=== PATIENT | male | born 1960 | race Caucasian/White ===

== ENCOUNTER 2017-09-13 18:10 | Inpatient (IN) | payer MEDICARE, MEDICAID ==
[2017-09-13] MEDS ORDERED: Sodium Chloride 0.9% 1,000 ML IV ONE (18:21)
--- NOTE | 2017-09-13 18:25 | ED Physician Chart ---
ED Chief Complaint/HPI - Patient Information Date Seen:: 09/13/17 Time Seen:: 17:40 Chief Complaint:: Abdominal Pain History of Present Illness:: onset x 2 days of intermittent, diffuse, crampy abdominal pain, N/V/D,; pt denies trauma, H/As, S/T, neck pain, C/P, SOB, A/C, fever, chills, bleeding, or urinary s/s Allergies:: Allergies Allergy/AdvReac Type Severity Reaction Status Date / Time diphenhydramine Allergy Verified 09/13/17 18:20 [From Benadryl] lorazepam Allergy Verified 09/13/17 18:20 morphine Allergy Verified 09/13/17 18:20 Penicillins Allergy Verified 09/13/17 18:21 Historian:: Patient, EMS Review:: Nurse's Note Reviewed, Old Chart Reviewed, EMS run form Reviewed ED Review of Systems - Review of Systems General/Constitutional: No fever, No chills, No weight loss, No weakness, No diaphoresis, No edema, No loss of appetite Skin: No skin lesions, No rash, No bruising Head: No headache, No light-headedness Eyes: No loss of vision, No pain, No diplopia ENT: No earache, No nasal drainage, No sore throat, No tinnitus Neck: No neck pain, No swelling, No thyromegaly, No stiffness, No mass noted Cardio Vascular: No chest pain, No palpitations, No PND, No orthopnea, No edema Pulmonary: No SOB, No cough, No sputum, No wheezing GI: Nausea, Vomiting, Diarrhea, Pain, Melena, Hematochezia, No constipation, No hematemesis G/U: No dysuria, No frequency, No hematuria, No nacturia Musculoskeletal: No bone or joint pain, No back pain, No muscle pain Endocrine: No polyuria, No polydipsia Psychiatric: No prior psych history, No depression, No anxiety, No suicidal ideation, No homicidal ideation, No auditory hallucination, No visual hallucination Hematopoietic: No bruising, No lymphadenopathy Allergic/Immuno: No urticaria, No angioedema Neurological: No syncope, No focal symptoms, No weakness, No paresthesia, No headache, No seizure, No dizziness, No confusion, No vertigo ED Past Medical History - Past Medical History Obtainable: Yes Past Medical History: HTN, Dyslipidemia, PUD/GERD, Other (Ulcerative Colitis) Family History: HTN Social History: Non Smoker, No Alcohol, No Drug Use, Single, Care Facility Surgical History: other (Multiple Abdominal Surgeries for UC) Psychiatricy History: None Medication: Reviewed ED Physical Exam - Physical Examination General/Constitutional: Awake, Well-developed, well-nourished, Alert, No distress, GCS 15, Non-toxic appearing, Ambulatory Head: Atraumatic Eyes: Lids, conjuctiva normal, PERRL, EOMI Skin: Nl inspection, No rash, No skin lesions, No ecchymosis, No lymphadenopathy Other Skin comments:: Poor Turgor with Dry MM ENMT: External ears, nose nl, TM canals nl, Nasal exam nl, Lips, teeth, gums nl , Oropharynx nl, Tonsils nl Neck: Nontender, Full ROM w/o pain, No JVD, No nuchal rigidity, No bruit, No mass, No stridor Respiratory: Nl effort/Exclusion, Clear to Auscultation, No Wheeze/Rhonchi/Rales Cardio Vascular: RRR, No murmur, gallop, rubs, NL S1 S2, Carotid/Femoral/Distal pulses equal bilaterally GI: No tenderness/rebounding/guarding, No organomegaly, No hernia, Normal BS's, Nondistended, No mass/bruits, No McBurney tenderness : No CVA tenderness Extremities: No tenderness or effusion, Full ROM, normal strength in all extremities, No edema, Normal digits & nails Neuro/Psych: Alert/oriented, DTR's symmetric, Normal sensory exam, Normal motor strength, Judgement/insight normal, Mood normal, Normal gait, No focal deficits Misc: Normal back, No paraspinal tenderness ED Labs/Radiology/EKG Results - Lab Results Comments:: K+: 3.2 - Radiology Results Comments:: NAD - EKG Interpretations EKG Time:: 18:40 Rate & Rhythm: 83; NSR Comments:: non-specific st-t changes ED Septic Shock - . Is Septic Shock (SBP<90, OR Lactate>4 mmol\L) present?: No ED Reassessment (Disposition) - Reassessment Reassessment Condition:: Improved - Diagnosis Diagnosis:: Abdominal Pain; Dehydration; Hypokalemia; N/V/D; AGE; Gastroenteritis - Aftercare/Follow up Instructions Aftercare/Follow-Up Instructions:: Counseled pt regarding lab results/diagnosis & need follow up, Counseled pt & family regarding lab results/diagnosis & need follow up - Patient Disposition Discharge/Transfer:: Acute Care w/in this hosp Accepting Physician:: Dr. De La Torre Time Called:: 1999 Time Responded:: 20:00 Admitted to:: Med/Surg Spoke to:: Dr. De La Torre Admitting Medical Physician:: Dr. De La Torre Condition at Disposition:: Stable, Improved
[2017-09-13 19:03] LABS: % BASOPHILS 0.9 % (0.0-2.0); % EOSINOPHILS 2.9 % (0.0-5.0); % LYMPHOCYTES 22.7 % (20.0-50.0); % MONOCYTES 7.9 % (2.0-10.0); % NEUTROPHILS 65.6 % (40.0-80.0); BASOPHILE ABSOLUTE 0.1 Th/cumm (0-0.2); EOSINOPHILE ABSOLUTE 0.2 Th/cmm (0.1-0.4); HEMATOCRIT 41.7 % (41.0-60); HEMOGLOBIN 13.5 gm/dL (12-16); LYMPHOCYTE ABSOLUTE 1.3 Th/cmm (1.5-3.0); MEAN CELL VOLUME 82.7 fl (80-99); MEAN CORPUSCULAR HEMOGLOBIN 26.9 pg (26.0-30.0); MEAN CORPUSCULAR HGB CONC 32.5 pg (28.0-36.0); MONOCYTE ABSOLUTE 0.4 Th/cmm (0.3-1.0); NEUTROPHILE ABSOLUTE 3.6 Th/cmm (1.8-8.0); PLATELET COUNT 354 Th/cmm (150-400); RED BLOOD COUNT 5.04 Mil/cmm (4.30-5.70); RED CELL DISTRIBUTION WIDTH 15.2 % (11.5-20.0); WHITE BLOOD COUNT 5.6 Th/cmm (4.8-10.8)
[2017-09-13 19:32] LABS: ALB/GLOB RATIO 1.1 (1.0-1.8); ALBUMIN 3.9 gm/dL (4.2-5.5); ALKALINE PHOSPHATASE 97 U/L (34-104); ANION GAP 11.3 (7.0-16.0); BILIRUBIN,TOTAL 0.2 mg/dL (0.3-1.0); BUN - UREA NITROGEN 7 mg/dL (7-25); CALCIUM SERUM 8.9 mg/dL (8.6-10.3); CARBON DIOXIDE 27.9 mEq/L (21.0-31.0); CHLORIDE 102 mEq/L (98-107); CHOLESTEROL 142 mg/dL (<200); CREATININE - SERUM 0.7 mg/dL (0.7-1.3); GFR AFRICAN-AMERICAN > 60.0 ml/min (>90); GFR NON AFRICAN-AMERICAN > 60.0 ml/min; GLUCOSE 84 mg/dL (70-105); HDL -HIGH DENSITY LIPOPROTEIN 33 mg/dL (23-92); POTASSIUM SERUM 3.2 mEq/L (3.5-5.1); SGOT 14 U/L (13-39); SGPT/ALT 10 U/L (7-52); SODIUM SERUM 138 mEq/L (136-145); TOTAL PROTEIN,SERUM 7.6 gm/dL (6.0-8.3); TRIGLYCERIDES 96 mg/dL (<150)
[2017-09-13 19:33] LABS: AMYLASE SERUM 35 U/L (29-103); LIPASE 13 U/L (11-82)
[2017-09-13 19:44] LABS: INR 1.1 (0.5-1.4); PROTHROMBIN TIME (TEST) 11.5 SECONDS (9.5-11.5)
[2017-09-13] MEDS ORDERED: Potassium Chloride 20 mEq ER Tab PO ONE ×2 (21:00→22:17)
[2017-09-13] MEDS ORDERED: Morphine Sulfate 2 mg/mL 1mL Syr IVP PRN (21:05)
[2017-09-13] MEDS ORDERED: Potassium Chloride 10 MEQ in D5-0.9%NS 1,000 ML IV SCH (21:06)
[2017-09-13] MEDS ORDERED: NITROGLYCERIN OINT 2% 1 INCH PACKET TP STA (21:55)
[2017-09-13] MEDS ORDERED: NITROGLYCERIN OINT 2% 1 INCH PACKET TP ONE (22:13)
[2017-09-14 01:42] VITALS: BP 140/61
[2017-09-14] MEDS: D5-0.45NS w/10 mEq KCL 1,000 ML IV SCH (02:53)
[2017-09-14] MEDS: HYDROmorphone 2 mg/mL 1mL Vial IVP PRN ×2 (04:01→08:22)
--- NOTE | 2017-09-14 08:11 | Diagnostic Imaging Report ---
CHEST X-RAY: AP view INDICATION: pain COMPARISON: None FINDINGS: Patient is mildly rotated. Chronic lung changes are seen with increased right basal lung markings. Slight increased left mid lung markings are also noted. No focal consolidation or effusions. 3 mm nodular density of the left upper lobe is noted adjacent to the anterior left second rib. Heart size is borderline prominent. Mildly tortuous aorta is noted. Multiple old left rib fractures are noted. Diffuse gas distended loops of bowel of the upper abdomen are noted. Degenerative changes of the spine are noted. No evidence of pneumothorax. IMPRESSION: Chronic lung changes. Increased right basal lung markings are noted which may be chronic versus less likely faint infiltrate, please correlate clinically. Left midlung subsegmental atelectasis versus scarring. 3 mm calcified appearing nodular density of left upper lobe, probably an old calcified granuloma. Please clinical correlation will exams. Consider follow-up if warranted. Generalized gaseous distended loops of bowel, partially visualized. Findings may represent an ileus. If indicated, acute abdominal series may be obtained for further assessment.
[2017-09-14 10:33] LABS: URINE MICROSCOPIC INDICATED? YES; URINE SOURCE CLEAN C
[2017-09-14 10:37] LABS: URINE BILIRUBIN NEGATIVE (NEGATIVE); URINE BLOOD NEGATIVE (NEGATIVE); URINE GLUCOSE (UA) NEGATIVE (NEGATIVE); URINE KETONE NEGATIVE (NEGATIVE); URINE LEUKOCYTE ESTERASE NEGATIVE (NEGATIVE); URINE NITRATE NEGATIVE (NEGATIVE); URINE PROTEIN NEGATIVE (NEGATIVE); URINE UROBILINOGEN 0.2 E.U./dL (0.2 - 1.0)
[2017-09-14 10:50] LABS: URINE CLARITY CLEAR (CLEAR); URINE COLOR YELLOW
[2017-09-14 10:56] LABS: URINE EPITHELIAL CELLS OCCASIONAL /lpf (FEW); URINE RBC NONE SEEN /hpf (0-5); URINE WBC 0-2 /hpf (0-5)
[2017-09-14 10:57] LABS: URINE BACTERIA FEW /hpf (NONE SEEN)
[2017-09-14 11:13] LABS: ANION GAP 8.8 (7.0-16.0); BUN - UREA NITROGEN 6 mg/dL (7-25); CALCIUM SERUM 9.3 mg/dL (8.6-10.3); CARBON DIOXIDE 28.2 mEq/L (21.0-31.0); CHLORIDE 102 mEq/L (98-107); CREATININE - SERUM 0.6 mg/dL (0.7-1.3); GFR AFRICAN-AMERICAN > 60.0 ml/min (>90); GFR NON AFRICAN-AMERICAN > 60.0 ml/min; GLUCOSE 113 mg/dL (70-105); SODIUM SERUM 135 mEq/L (136-145)
[2017-09-14] MEDS: HYDROmorphone 2 mg/mL 1mL Vial IM PRN ×3 (13:11→21:10)
[2017-09-14] MEDS: metroNIDAZOLE 500mg/NS 100mL 500 MG/100 ML BAG IV SCH ×2 (14:26→21:40)
--- NOTE | 2017-09-14 17:04 | History & Physical ---
ADMIT DATE: 09/14/2017 CHIEF COMPLAINT: Short of breath, abdominal pain, nausea, vomiting, diarrhea. HISTORY OF PRESENT ILLNESS: The patient is a 56-year-old male admitted from the Emergency Room to the telemetry floor of [facility] due to multiple complicated medical conditions. The patient was complaining of some shortness of breath with nausea, vomiting, abdominal pain, severe enough to the point that the patient his come into the hospital. The patient does have a history of COPD and pneumonia. He is also status post multiple CVAs with difficulty walking. Additionally, the patient has chronic pain syndrome, which is understandable as the patient has had multiple abdominal surgeries with complications of adhesions. The patient had early onset ulcerative colitis and Crohn's disease. He has had multiple abdominal surgeries done decades ago in [facility] with subsequent adhesion complications and the resultant chronic pain syndrome. Because of the nausea and vomiting, the patient's potassium was low at 3.3 in the Emergency Room. His troponin is less than 0.01. PAST MEDICAL HISTORY: COPD, pneumonia, questionable coronary heart disease, congestive heart failure, status post CVA, Crohn's disease, and ulcerative colitis. PAST SURGICAL HISTORY: Status post multiple abdominal surgeries. MEDICATIONS: See medication reconciliation. ALLERGIES: Multiple, but I doubt this is very reliable, as the patient did receive a lot of medications above without allergies. FAMILY HISTORY: Noncontributory. SOCIAL HISTORY: The patient is not and without any children. The patient has one sister with loose contact. He smoked before, quit years ago. No history of alcohol or IV drug use. REVIEW OF SYSTEMS: As per HPI. PHYSICAL EXAMINATION: GENERAL: Well-developed, thin male in no acute distress. SKIN: Warm and dry. VITAL SIGNS: Basically stable. HEENT: Normocephalic, atraumatic. Pupils equal, round, react to light and accommodation. CHEST: Symmetrical lung smith with ____ at lung base. HEART: Normal sinus rhythm, S1, S2. ABDOMEN: Benign, no peritoneal signs, but there is generalized tenderness. Bowel sounds are positive. EXTREMITIES: No clubbing, cyanosis. There is trace edema, bilaterally. PSYCHIATRIC: Linear and logical. NEUROLOGICAL: Unremarkable. LABORATORY DATA: Reviewed, seen from computer. ASSESSMENT AND PLAN: 1. He has probably early aspiration pneumonia: Flagyl IVPB q. 8h. ordered and sputum Gram stain and C and S, ordered, which will be adjusted accordingly. 2. Abdominal pain with nausea, vomiting, diarrhea: The patient is status post multiple abdominal surgeries with complication of adhesions and chronic pain syndrome as a result. The patient also had an extensive workup in different hospitals and therefore currently we will manage conservatively, which is also the patient's wish. 3. Hypokalemia: Supplement as needed. 4. Gastroenteritis: Keep patient n.p.o. on IV fluids. 5. Chronic obstructive pulmonary disease: RT protocol. 6. Chronic pain syndrome: It is understandable. 7. Status post cerebrovascular accident with difficulty walking: Physical therapy. 8. DVT prophylaxis. JOB# [id number]
[2017-09-14] MEDS ORDERED: AMITRIPTYLINE HCL 150 MG PO SCH (21:00)
[2017-09-15] MEDS: HYDROmorphone 2 mg/mL 1mL Vial IVP PRN ×6 (02:04→21:51)
[2017-09-15] MEDS: metroNIDAZOLE 500mg/NS 100mL 500 MG/100 ML BAG IV SCH ×3 (04:08→20:41)
[2017-09-15 06:07] LABS: % BASOPHILS 1.9 % (0.0-2.0); % EOSINOPHILS 2.1 % (0.0-5.0); % LYMPHOCYTES 35.7 % (20.0-50.0); % MONOCYTES 10.1 % (2.0-10.0); % NEUTROPHILS 50.2 % (40.0-80.0); BASOPHILE ABSOLUTE 0.1 Th/cumm (0-0.2); EOSINOPHILE ABSOLUTE 0.1 Th/cmm (0.1-0.4); HEMOGLOBIN 13.5 gm/dL (12-16); LYMPHOCYTE ABSOLUTE 1.6 Th/cmm (1.5-3.0); MEAN CELL VOLUME 82.3 fl (80-99); MEAN CORPUSCULAR HEMOGLOBIN 27.1 pg (26.0-30.0); MEAN PLATELET VOLUME 7.1 fl; MONOCYTE ABSOLUTE 0.5 Th/cmm (0.3-1.0); NEUTROPHILE ABSOLUTE 2.3 Th/cmm (1.8-8.0); PLATELET COUNT 307 Th/cmm (150-400); RED BLOOD COUNT 4.98 Mil/cmm (4.30-5.70); RED CELL DISTRIBUTION WIDTH 15.3 % (11.5-20.0); WHITE BLOOD COUNT 4.6 Th/cmm (4.8-10.8)
[2017-09-15] MEDS: D5-0.45NS w/10 mEq KCL 1,000 ML IV SCH (12:56)
--- NOTE | 2017-09-15 20:20 | Progress Notes ---
DATE: 09/14/2017 SUBJECTIVE: The patient is complaining of abdominal pain, very weak. OBJECTIVE: VITAL SIGNS: Basically stable. HEENT: Normocephalic, atraumatic. Pupils equal, round, react to light and accommodation. CHEST: Symmetrical. LUNGS: ____ at lung base. CARDIAC: Normal sinus rhythm. S1, S2. ABDOMEN: Benign, soft, nontender. EXTREMITIES: No clubbing, cyanosis. There is trace edema, bilaterally. PSYCHIATRIC: Linear and logical. NEUROLOGICAL: Unremarkable. LABS: Reviewed. ASSESSMENT AND PLAN: 1. Chronic pain syndrome: Multifactorial, understandable. We will adjust pain medications as needed. 2. Abdominal pain on and off, but improving. 3. Early pneumonia: Flagyl IVPB and adjust antibiotic accordingly. 4. Hypokalemia: Supplement. We will repeat BMP in the morning. 5. Chronic obstructive pulmonary disease: RT protocol. 6. Gastroenteritis: The patient will be kept n.p.o. We will start clear liquid diet if patient can tolerate. 7. Severe Crohn disease and ulcerative colitis, status post multiple abdominal surgeries with complication. 8. Status post cerebrovascular accident with difficulty walking: Physical therapy. 9. Deep venous thrombosis prophylaxis. JOB# [id number]
[2017-09-16] MEDS: HYDROmorphone 2 mg/mL 1mL Vial IVP PRN ×6 (02:10→22:04)
[2017-09-16] MEDS: metroNIDAZOLE 500mg/NS 100mL 500 MG/100 ML BAG IV SCH ×3 (06:03→20:55)
[2017-09-16] MEDS ORDERED: fentaNYL 50 mcg/hr Tdm Patch TD SCH (09:00)
[2017-09-16] MEDS: D5-0.45NS w/10 mEq KCL 1,000 ML IV SCH (13:58)
[2017-09-17] MEDS: HYDROmorphone 2 mg/mL 1mL Vial IVP PRN ×6 (02:00→22:07)
[2017-09-17 05:16] LABS: % BASOPHILS 1.3 % (0.0-2.0); % EOSINOPHILS 4.7 % (0.0-5.0); % LYMPHOCYTES 26.4 % (20.0-50.0); % MONOCYTES 9.3 % (2.0-10.0); % NEUTROPHILS 58.3 % (40.0-80.0); BASOPHILE ABSOLUTE 0.1 Th/cumm (0-0.2); EOSINOPHILE ABSOLUTE 0.2 Th/cmm (0.1-0.4); HEMATOCRIT 40.9 % (41.0-60); HEMOGLOBIN 13.4 gm/dL (12-16); LYMPHOCYTE ABSOLUTE 1.4 Th/cmm (1.5-3.0); MEAN CELL VOLUME 82.2 fl (80-99); MEAN CORPUSCULAR HEMOGLOBIN 26.9 pg (26.0-30.0); MEAN CORPUSCULAR HGB CONC 32.7 pg (28.0-36.0); MEAN PLATELET VOLUME 7.2 fl; MONOCYTE ABSOLUTE 0.5 Th/cmm (0.3-1.0); NEUTROPHILE ABSOLUTE 3.1 Th/cmm (1.8-8.0); PLATELET COUNT 324 Th/cmm (150-400); RED BLOOD COUNT 4.98 Mil/cmm (4.30-5.70); RED CELL DISTRIBUTION WIDTH 15.4 % (11.5-20.0); WHITE BLOOD COUNT 5.3 Th/cmm (4.8-10.8)
[2017-09-17] MEDS: metroNIDAZOLE 500mg/NS 100mL 500 MG/100 ML BAG IV SCH ×3 (05:24→20:53)
[2017-09-17 05:26] LABS: ALB/GLOB RATIO 1.1 (1.0-1.8); ALBUMIN 3.5 gm/dL (4.2-5.5); ALKALINE PHOSPHATASE 101 U/L (34-104); BILIRUBIN,TOTAL 0.4 mg/dL (0.3-1.0); BUN - UREA NITROGEN 8 mg/dL (7-25); CARBON DIOXIDE 25.5 mEq/L (21.0-31.0); CHLORIDE 104 mEq/L (98-107); CREATININE - SERUM 0.8 mg/dL (0.7-1.3); GFR AFRICAN-AMERICAN > 60.0 ml/min (>90); GFR NON AFRICAN-AMERICAN > 60.0 ml/min; GLUCOSE 85 mg/dL (70-105); POTASSIUM SERUM 3.5 mEq/L (3.5-5.1); SGOT 14 U/L (13-39); SGPT/ALT 9 U/L (7-52); SODIUM SERUM 136 mEq/L (136-145); TOTAL PROTEIN,SERUM 6.7 gm/dL (6.0-8.3)
[2017-09-17] MEDS: D5-0.45NS w/10 mEq KCL 1,000 ML IV SCH (11:56)
[2017-09-18] MEDS: HYDROmorphone 2 mg/mL 1mL Vial IVP PRN ×5 (02:05→18:11)
[2017-09-18] MEDS: metroNIDAZOLE 500mg/NS 100mL 500 MG/100 ML BAG IV SCH ×2 (05:59→14:10)
[2017-09-18] MEDS: D5-0.45NS w/10 mEq KCL 1,000 ML IV SCH (10:08)
--- NOTE | 2017-09-20 14:52 | Discharge Summary ---
DATE OF DISCHARGE: 09/18/2017 FINAL DIAGNOSES: 1. Abdominal pain, improved. 2. Nausea and vomiting, resolved. 3. Early pneumonia on IVPB antibiotics. 4. Hypokalemia, supplemented. 5. Chronic obstructive pulmonary disease, improved. 6. ____ chronic pain syndrome on medication with dose adjustment. HOSPITAL COURSE: The patient is a 56-year-old male admitted from the Emergency Room to telemetry floor of [facility] due to early pneumonia with abdominal pain, nausea, vomiting, diarrhea in [place] [facility] [place]. Due to nausea and vomiting, the patient's potassium was low, which was supplemented in the Emergency Room. The patient's prognosis suffered from gastroenteritis. On admission, the patient did have severe Crohn disease and ulcerative colitis and underwent multiple abdominal surgeries in [facility] and over decades ago with complications and obstruction resulting in a chronic pain syndrome. The patient was kept n.p.o. initially on admission and on clear liquid diet was started the next day as the patient's abdominal pain, nausea and vomiting improved. The patient tolerated the diet okay. Due to pneumonia and ____ COPD, etc, the patient did well and wanted to be transferred to [facility]. He was accepted to [facility]. DISCHARGE CONDITION: Stable. DISPOSITION: [facility]. DISHCARGE MEDICATIONS: Continue medication from [facility]. DIET: Cardiac soft diet. ACTIVITY: Bed rest with physical therapy. FOLLOWUP: Same day in [place]. JOB# [id number]
== END 2017-09-18 19:15 | DRG 178 ==
LOC: ER 18:10 → TELE 21:15
PROVIDERS: ADMIT Internal Medicine; ATTEND Internal Medicine
DX: J69.0 Pneumonitis due to inhalation of food and vomit (principal); J44.0 Chronic obstructive pulmonary disease with (acute) lower respiratory infection; K50.90 Crohn's disease, unspecified, without complications; K52.9 Noninfective gastroenteritis and colitis, unspecified; E87.6 Hypokalemia; I11.0 Hypertensive heart disease with heart failure; I50.9 Heart failure, unspecified; J44.9 Chronic obstructive pulmonary disease, unspecified; K21.9 Gastro-esophageal reflux disease without esophagitis; E86.0 Dehydration; G89.4 Chronic pain syndrome; Z86.73 Personal history of transient ischemic attack (TIA), and cerebral infarction without residual deficits; Z88.0 Allergy status to penicillin; Z88.8 Allergy status to other drugs, medicaments and biological substances; Z82.49 Family history of ischemic heart disease and other diseases of the circulatory system
CPT/HCPCS: 36415-UA; 71045-TC; 80048-TC; 80053-TC; 80061-TC; 81001-TC; 82150-TC; 82550-TC; 82948-90; 83690-TC; 83880-TC; 84484-TC; 85025-TC; 85610-TC; 90799; 93005; J1170; J3480; J7030; J7042; Z7610

== ENCOUNTER 2017-12-23 23:43 | Inpatient (IN) | payer MEDICARE, MEDICAID ==
--- NOTE | 2017-12-24 00:36 | ED Physician Chart ---
ED Chief Complaint/HPI - Patient Information Date Seen:: 12/23/17 Time Seen:: 23:59 Chief Complaint:: dizziness History of Present Illness:: THIS IS A 57 YO CHRONICALLY ILL WHITE MALE SENT TO THIS ER FOR AN EVALUATION FROM THE [facility]. HE COMPLAINS OF NOT BEING ABLE TO GET UP TO WALK BECAUSE OF DIZZINESS, WEAKNESS AND ABDOMINAL DISTENTION. HE HAS AN EXTENSIVE MEDICAL HISTORY OF COPD, HEART DISEASE, MULTIPLE CVA, CROHN'S DISEASE, AND ULCERATIVE COLITIS. HE DENIES VOMITING. HE NOW COMPLAINS ALSO OF RIGHT KNEE AND FOOT PAIN AFTER A FALL TODAY. HE STATES THAT HIS ABDOMEN HAS BEEN DISTENDED WITH PAIN FOR A WEEK. HE STATES THAT PAIN IS 6/10 AND DIFFUSE NON RADIATING. Allergies:: Allergies Allergy/AdvReac Type Severity Reaction Status Date / Time diphenhydramine Allergy Verified 12/23/17 23:55 [From Benadryl] lorazepam Allergy Verified 12/23/17 23:55 morphine Allergy Verified 12/23/17 23:55 Penicillins Allergy Verified 12/23/17 23:55 Vitals:: Vital Signs - 8 hr 12/23/17 23:45 Temp 98.2 F HR 86 RR 18 BP 86/63 O2 Sat % 94 Historian:: Patient, EMS, Medical Records Review:: Nurse's Note Reviewed, Transfer documents Reviewed ED Review of Systems - Review of Systems General/Constitutional: No fever, No chills, Weight loss, Weakness, No diaphoresis, No edema, No loss of appetite Skin: No skin lesions, No rash, No bruising Head: No headache, Light headed Eyes: No loss of vision, No pain, No diplopia ENT: No earache, No nasal drainage, No sore throat, No tinnitus Neck: No neck pain, No swelling, No thyromegaly, No stiffness, No mass noted Cardio Vascular: No chest pain, No palpitations, No PND, No orthopnea, No edema Pulmonary: No SOB, No cough, No sputum, No wheezing GI: No nausea, No vomiting, No diarrhea, Pain, No melena, No hematochezia, No constipation, No hematemesis G/U: No dysuria, No frequency, No hematuria Musculoskeletal: Bone or joint pain (RIGHT KNEE PAIN), No back pain, No muscle pain Endocrine: No polyuria, No polydipsia Psychiatric: No prior psych history, No depression, No anxiety, No suicidal ideation Hematopoietic: No bruising, No lymphadenopathy Allergic/Immuno: No urticaria, No angioedema Neurological: No syncope, No focal symptoms, No weakness, No paresthesia, No headache, No seizure, No dizziness, No confusion, No vertigo ED Past Medical History - Past Medical History Obtainable: Yes Past Medical History: HTN, CAD, CHF, Asthma/COPD, CVA/TIA, PUD/GERD, Seizures, Dementia Family History: None Social History: Smoker, No Alcohol, No Drug Use, , Care Facility Surgical History: other (MULTIPLE COLON SURGERIES, ) Psychiatricy History: Depression, Schizophrenia Medication: Reviewed Family Medical History - Family Member Mother History Unknown: Yes ED Physical Exam - Physical Examination General/Constitutional: Awake, Well-developed, well-nourished, Alert, No distress, GCS 15, Non-toxic appearing, Ambulatory Head: Atraumatic Eyes: Lids, conjuctiva normal, PERRL, EOMI Skin: Nl inspection, No rash, No skin lesions, No ecchymosis, Well hydrated, No lymphadenopathy ENMT: External ears, nose nl, Nasal exam nl, Lips, teeth, gums nl Neck: Nontender, Full ROM w/o pain, No JVD, No nuchal rigidity, No bruit, No mass, No stridor Respiratory: Nl effort/Exclusion, Clear to Auscultation, No Wheeze/Rhonchi/Rales Cardio Vascular: RRR, No murmur, gallop, rubs, NL S1 S2 GI: No tenderness/rebounding/guarding (THERE IS GENERALIZE TENDERNESS AND SLIGHTLY DISTENDED ABDOMEN), No organomegaly, No hernia, Normal BS's, Nondistended, No mass/bruits, No McBurney tenderness : No CVA tenderness Extremities: No tenderness or effusion, Full ROM, normal strength in all extremities, No edema, Normal digits & nails Neuro/Psych: Alert/oriented, DTR's symmetric, Normal sensory exam, Normal motor strength, Judgement/insight normal, Mood normal, Normal gait, No focal deficits Misc: Normal back, No paraspinal tenderness ED Assessment - Assessment General Assessment: abdominal pain ED Septic Shock - . Is Septic Shock (SBP<90, OR Lactate>4 mmol\L) present?: No - <6hrs of presentation: Vital Signs: Vital Signs - 8 hr 08/11/18 23:45 Temp 98.2 F HR 86 RR 18 BP 86/63 O2 Sat % 94 ED Reassessment (Disposition) - Reassessment Reassessment Condition:: Improved - Diagnosis Diagnosis:: abdominal pain - Patient Disposition Accepting Physician:: this patient will be cared for by dr. CAMERON Priest 0700 HRS.
[2017-12-24] MEDS ORDERED: Sodium Chloride 0.9% 1,000 ML IV ONE (01:44)
[2017-12-24] MEDS ORDERED: Haloperidol Lactate 5 mg/mL 1mL Vial IVP ONE (03:20)
[2017-12-24] MEDS ORDERED: Haloperidol Lactate 5 mg/mL 1mL Vial IM ONE (03:20)
[2017-12-24] MEDS ORDERED: Haloperidol Lactate 5 mg/mL 1mL Vial ONE (06:19)
[2017-12-24 08:10] LABS: HEMATOCRIT 45.5 % (41.0-60); HEMOGLOBIN 14.7 gm/dL (12-16); MEAN CELL VOLUME 85.4 fl (80-99); MEAN CORPUSCULAR HEMOGLOBIN 27.6 pg (26.0-30.0); MEAN CORPUSCULAR HGB CONC 32.3 pg (28.0-36.0); MEAN PLATELET VOLUME 8.8 fl; PLATELET COUNT 333 Th/cmm (150-400); RED BLOOD COUNT 5.34 Mil/cmm (4.30-5.70); WHITE BLOOD COUNT 9.4 Th/cmm (4.8-10.8)
[2017-12-24 08:11] LABS: BAND NEUTROPHILE 0 % (0-10); BASOPHIL 0 % (0-3); EOSINOPHIL 1 % (0-5); LYMPHOCYTE 11 % (20-50); MONOCYTE 9 % (2-10); NEUTROPHILS 79 % (40-80); PLATELET ESTIMATE ADEQUATE (NORMAL)
[2017-12-24 08:15] LABS: INR 1.07 (0.5-1.4); PROTHROMBIN TIME (TEST) 10.9 SECONDS (9.5-11.5)
[2017-12-24 08:16] LABS: ANION GAP 18.7 (7.0-16.0); CHLORIDE 101 mEq/L (98-107); GLUCOSE 108 mg/dL (70-105); POTASSIUM SERUM 3.7 mEq/L (3.5-5.1); SODIUM SERUM 135 mEq/L (136-145)
[2017-12-24 08:17] LABS: ALB/GLOB RATIO 0.7 (1.0-1.8); ALBUMIN 3.4 gm/dL (4.2-5.5); ALKALINE PHOSPHATASE 121 U/L (34-104); BILIRUBIN,TOTAL 0.2 mg/dL (0.3-1.0); BUN - UREA NITROGEN 21 mg/dL (7-25); CALCIUM SERUM 8.7 mg/dL (8.6-10.3); CREATININE - SERUM 1.1 mg/dL (0.7-1.3); GFR AFRICAN-AMERICAN > 60.0 ml/min (>90); GFR NON AFRICAN-AMERICAN > 60.0 ml/min; SGOT 17 U/L (13-39); SGPT/ALT 14 U/L (7-52); TOTAL PROTEIN,SERUM 8.5 gm/dL (6.0-8.3)
[2017-12-24] MEDS ORDERED: Magnesium Hydroxide (MOM) 30 mL UDC PO PRN (09:34)
[2017-12-24] MEDS ORDERED: LIDOCAINE TP PRN (09:34)
[2017-12-24] MEDS ORDERED: BUPRENORPHINE 5 MCG TD SCH (09:45)
--- NOTE | 2017-12-24 09:45 | Diagnostic Imaging Report ---
Exam: CT examination abdomen pelvis HISTORY: Renal stones. Total DLP equals 410 CTDI equals 8.5 Findings: Multiple contiguous thin section of the abdomen pelvis obtained from lower thorax to pubic symphysis without the administration of oral or intravenous contrast material, no prior studies available comparison. The study demonstrates a normal aeration of lung parenchyma at the bases. The liver and spleen are intact. The pancreas is normal. The gallbladder is distended. The kidneys demonstrate no evidence of obstructive uropathy or nephrolithiasis. Multiple cysts are noted throughout the left kidney largest one measuring 4.5 cm diameter. There is evidence for moderate to distention of the colon with air-fluid levels might be suggestive of enteritis or adynamic ileus. There is evidence of fecal impaction in the rectosigmoid junction the rectum. Bony structures demonstrate no evidence for lytic or blastic changes. The urinary bladder is distended. There is evidence for subcutaneous sebaceous cyst in the left gluteal region measuring 4.5 cm diameter. IMPRESSION: Distention, air-fluid levels throughout the colon suggestive of ileus with enterocolitis. Correlate with patient's symptoms
[2017-12-24] MEDS ORDERED: oxyCODONE 5 mg IR Tab PO PRN (10:03)
[2017-12-24] MEDS: HYDROmorphone 2 mg/mL 1mL Vial IVP PRN ×4 (11:12→22:42)
[2017-12-24] MEDS: D5-0.9%NS 1,000 ML IV SCH ×2 (11:19→22:49)
[2017-12-24] MEDS ORDERED: OXYCODONE HCL 20 MG PO SCH (12:00)
[2017-12-24] MEDS: Dicyclomine 10 mg Cap PO SCH ×3 (13:17→21:27)
[2017-12-24] MEDS ORDERED: MESALAMINE 800 MG PO SCH (14:00)
[2017-12-24] MEDS ORDERED: DRONABINOL 2.5 MG PO SCH (17:00)
[2017-12-24] MEDS ORDERED: Non-Formulary Item 1 EA (Lactobacillus Acidophilus [Acidophilus] 1 EACH) PO SCH (17:00)
[2017-12-24] MEDS: Fluticasone Propionate Nasal 1 SPR SPR NS SCH (18:28)
--- NOTE | 2017-12-25 00:49 | History & Physical ---
ADMIT DATE: 12/24/2017 CHIEF COMPLAINT: Abdominal pain and shortness of breath. HISTORY OF PRESENT ILLNESS: The patient is a 57-year-old male admitted from the Emergency Room to telemetry floor of [facility] due to multiple complicated medical conditions. The patient complained worsening abdominal pain over the past few days to the point that he felt he really needs to come to the Emergency Room. In the Emergency Room, abdominal and pelvic CT scan revealed finding suggesting ileus. Of mention is the patient has a severe Crohn's disease and ulcerative colitis since he was a teenager. The patient had multiple abdominal surgeries done in [facility] at that time. There were a lot of complications and adhesions and after surgery, which left the patient with chronic abdominal pain and subsequent chronic pain syndrome. Additionally, the patient also complained of short of breath from time to time. He does have COPD and the probably has COPD exacerbation. Additionally, his abdominal CT scan also revealed distention of colon with air fluid level, might be suggestive of enteritis. PAST MEDICAL HISTORY: Severe Crohn's disease and ulcerative colitis, COPD, pneumonia, questionable coronary artery disease, status post CVA with difficulty walking, chronic pain syndrome due to multiple abdominal surgeries with adhesion complications. PAST SURGICAL HISTORY: Multiple abdominal surgeries, once as a teenager, ____ in his early 20s for severe Crohn's disease and ulcerative colitis. MEDICATIONS: See medication reconciliation list. ALLERGIES: Please see allergy profile as the is unreliable as the patient did receive many of those medication without any allergy or reaction. REVIEW OF SYSTEMS: As per HPI. PHYSICAL EXAMINATION: GENERAL: A well-developed, thin male, in no acute distress. SKIN: Warm and dry. VITAL SIGNS: Basically stable. HEENT: Normocephalic, atraumatic. Pupils equal, round, react to light and accommodation. CHEST: Symmetrical. LUNGS: Few wheezing appreciated. CARDIAC: Normal sinus rhythm. S1 and S2. ABDOMEN: Benign, soft, nontender. EXTREMITIES: No clubbing, cyanosis. There is trace edema bilaterally, 2+ pitting. NEUROLOGICAL: Unremarkable. LABORATORY DATA: Reviewed. ASSESSMENT AND PLAN: 1. Abdominal pain: Multifactorial probably due to the combination of enteritis or possible Crohn's disease or ulcerative colitis. There is also some component of ileus. 2. History of severe ulcerative colitis and Crohn disease status post multiple surgeries with complication of adhesions and the resultant abdominal pain and chronic pain syndrome. 3. Short of breath/respiratory insufficiency due to chronic obstructive pulmonary disease exacerbation: RT protocol ordered. We will observe closely. 4. Status post cerebrovascular accident with difficulty walking. 5. Questionable history of coronary artery disease. 6. Seizure, controlled. 7. History of depression, anxiety/bipolar and mild psychosis: Continue medication. We will adjust accordingly. 8. Deep venous thrombosis prophylaxis. [facility]# [id number]
[2017-12-25] MEDS: HYDROmorphone 2 mg/mL 1mL Vial IVP PRN ×7 (01:42→21:55)
[2017-12-25] MEDS ORDERED: Non-Formulary Item 1 EA (Duloxetine Hcl [Cymbalta] 60 MG) PO SCH (09:00)
[2017-12-25] MEDS ORDERED: NALOXEGOL OXALATE 25 MG PO SCH (09:00)
[2017-12-25] MEDS: Lactobacillus Rhamnosus GG 15 Billion CFU CAP.SPRINK PO SCH (09:03)
[2017-12-25] MEDS: Multivitamin Tab PO SCH (09:03)
[2017-12-25] MEDS: Fluticasone Propionate Nasal 1 SPR SPR NS SCH ×2 (09:03→17:21)
[2017-12-25] MEDS: Dicyclomine 10 mg Cap PO SCH ×4 (09:03→20:40)
[2017-12-25] MEDS: D5-0.9%NS 1,000 ML IV SCH (09:31)
[2017-12-25 12:37] LABS: URINE SOURCE MIDSTREAM
[2017-12-25 12:39] LABS: URINE BILIRUBIN NEGATIVE (NEGATIVE); URINE BLOOD NEGATIVE (NEGATIVE); URINE GLUCOSE (UA) NEGATIVE (NEGATIVE); URINE KETONE NEGATIVE (NEGATIVE); URINE LEUKOCYTE ESTERASE NEGATIVE (NEGATIVE); URINE NITRATE NEGATIVE (NEGATIVE); URINE PROTEIN NEGATIVE (NEGATIVE); URINE UROBILINOGEN 0.2 E.U./dL (0.2 - 1.0)
[2017-12-25 12:42] LABS: URINE COLOR YELLOW
[2017-12-25 12:43] LABS: URINE CLARITY CLEAR (CLEAR); URINE MICROSCOPIC INDICATED? NO
--- NOTE | 2017-12-25 12:59 | Diagnostic Imaging Report ---
Right foot (3 views) HISTORY: Pain No acute bony abnormality seen. Mild valgus deformity noted about the first metatarsal phalangeal joint. IMPRESSION: 1. No definite acute abnormalities 2. Mild valgus deformity about the first metatarsal phalangeal joint. In the presence of recent trauma and persistent symptoms, a repeat radiograph in 5-7 days may be helpful for detection of a subtle or occult fracture.
--- NOTE | 2017-12-25 23:35 | Internal Medicine Prog Note ---
Internal Medicine Subjective - Subjective Service Date: 12/25/17 Patient seen and examined:: without staff Patient is:: awake, interactive, in bed Patient Complaints of:: congestion Per staff patient has:: no adverse event Internal Medicine Objective - Results Result Diagrams: 12/24/17 01:15 12/24/17 01:15 Recent Labs: Laboratory Last Values WBC 9.4 Th/cmm (4.8-10.8) 12/24/17 01:15 RBC 5.34 Mil/cmm (4.30-5.70) 12/24/17 01:15 Hgb 14.7 gm/dL (12-16) 12/24/17 01:15 Hct 45.5 % (41.0-60) 12/24/17 01:15 MCV 85.4 fl (80-99) 12/24/17 01:15 MCH 27.6 pg (26.0-30.0) 12/24/17 01:15 MCHC Differential 32.3 pg (28.0-36.0) 12/24/17 01:15 RDW 16.0 % (11.5-20.0) 12/24/17 01:15 Plt Count 333 Th/cmm (150-400) 12/24/17 01:15 MPV 8.8 fl 12/24/17 01:15 Add Manual Diff YES 12/24/17 01:15 Band Neutrophils % 0 % (0-10) 12/24/17 01:15 Neutrophils (Manual) 79 % (40-80) 12/24/17 01:15 Lymphocytes 11 % (20-50) L 12/24/17 01:15 Monocytes 9 % (2-10) 12/24/17 01:15 Eosinophils 1 % (0-5) 12/24/17 01:15 Basophils 0 % (0-3) 12/24/17 01:15 Platelet Estimate ADEQUATE (NORMAL) 12/24/17 01:15 PT 10.9 SECONDS (9.5-11.5) 12/24/17 01:15 INR 1.07 (0.5-1.4) 12/24/17 01:15 PTT (Actin FS) 31.0 SECONDS (26.0-38.0) 12/24/17 01:15 Sodium 135 mEq/L (136-145) L 12/24/17 01:15 Potassium 3.7 mEq/L (3.5-5.1) 12/24/17 01:15 Chloride 101 mEq/L (98-107) 12/24/17 01:15 Carbon Dioxide 19.0 mEq/L (21.0-31.0) L 12/24/17 01:15 Anion Gap 18.7 (7.0-16.0) H 12/24/17 01:15 BUN 21 mg/dL (7-25) 12/24/17 01:15 Creatinine 1.1 mg/dL (0.7-1.3) 12/24/17 01:15 Est GFR ( Amer) > 60.0 ml/min (>90) 12/24/17 01:15 Est GFR (Non-Af Amer) > 60.0 ml/min 12/24/17 01:15 BUN/Creatinine Ratio 19.1 12/24/17 01:15 Glucose 108 mg/dL (70-105) H 12/24/17 01:15 Calcium 8.7 mg/dL (8.6-10.3) 12/24/17 01:15 Total Bilirubin 0.2 mg/dL (0.3-1.0) L 12/24/17 01:15 AST 17 U/L (13-39) 12/24/17 01:15 ALT 14 U/L (7-52) 12/24/17 01:15 Alkaline Phosphatase 121 U/L (34-104) H 12/24/17 01:15 Troponin I < 0.01 ng/mL (0.01-0.05) L 12/24/17 01:15 Total Protein 8.5 gm/dL (6.0-8.3) H 12/24/17 01:15 Albumin 3.4 gm/dL (4.2-5.5) L 12/24/17 01:15 Globulin 5.1 gm/dL 12/24/17 01:15 Albumin/Globulin Ratio 0.7 (1.0-1.8) L 12/24/17 01:15 Amylase 49 U/L (29-103) 12/24/17 01:15 Lipase 81 U/L (11-82) 12/24/17 01:15 TSH 0.51 uIU/ml (0.34-5.60) 12/24/17 01:15 Urine Source MIDSTREAM 12/25/17 12:00 Urine Color YELLOW 12/25/17 12:00 Urine Clarity CLEAR (CLEAR) 12/25/17 12:00 Urine pH 6.0 (4.6 - 8.0) 12/25/17 12:00 Ur Specific [place] 1.020 (1.005-1.030) 12/25/17 12:00 Urine Protein NEGATIVE mg/dL (NEGATIVE) 12/25/17 12:00 Urine Glucose (UA) NEGATIVE mg/dL (NEGATIVE) 12/25/17 12:00 Urine Ketones NEGATIVE mg/dL (NEGATIVE) 12/25/17 12:00 Urine Blood NEGATIVE (NEGATIVE) 12/25/17 12:00 Urine Nitrate NEGATIVE (NEGATIVE) 12/25/17 12:00 Urine Bilirubin NEGATIVE (NEGATIVE) 12/25/17 12:00 Urine Urobilinogen 0.2 E.U./dL (0.2 - 1.0) 12/25/17 12:00 Ur Leukocyte Esterase NEGATIVE (NEGATIVE) 12/25/17 12:00 - Physical Exam Vitals and I&O: Vital Signs Temp 97.9 F 12/25/17 20:00 Pulse 96 12/25/17 20:00 Resp 17 12/25/17 20:00 BP 129/74 12/25/17 20:00 Pulse Ox 96 12/25/17 20:00 Intake & Output 12/25/17 12/25/17 12/26/17 06:59 18:59 06:59 Intake Total 1240 2381 Output Total 5 Balance 1235 2381 Weight (lbs) 63.412 kg 63.049 kg Intake: Intake, IV Amount 1000 1581 D5-0.9%Ns 1,000 ml @ 90 1000 1581 mls/hr IV .Q11H7M [facility] Rx# :[id number] Oral 240 800 Output: Urine/Stool Mix 5 Other: # Voids 4 # Bowel Movements 4 Stool Characteristics Liquid Liquid Brown Brown Weight Source Bedscale Bedscale Active Medications: Current Medications Acetaminophen (Tylenol) 650 mg PO Q6HR PRN PRN Reason: PAIN OR TEMP >101 Stop: 02/22/18 09:30 Last Admin: 12/25/17 11:52 Dose: 650 mg Amitriptyline HCl (Elavil) 100 mg PO [facility]; Protocol Stop: 02/22/18 20:59 Last Admin: 12/25/17 20:39 Dose: 100 mg Amlodipine Besylate (Norvasc) 5 mg PO DAILY [facility] Stop: 02/23/18 08:59 Last Admin: 12/25/17 09:04 Dose: 5 mg Ascorbic Acid (Vitamin C) 500 mg PO DAILY [facility] Stop: 02/23/18 08:59 Last Admin: 12/25/17 09:03 Dose: 500 mg Baclofen (Lioresal) 5 mg PO DAILY [facility] Stop: 02/23/18 08:59 Last Admin: 12/25/17 09:03 Dose: 5 mg Benazepril HCl (Lotensin) 10 mg PO DAILY [facility] Stop: 02/23/18 08:59 Last Admin: 12/25/17 09:03 Dose: 10 mg Bisacodyl (Dulcolax 10 Mg Supp) 10 mg RC DAILY PRN PRN Reason: IF MOM INEFFECTIVE Stop: 02/22/18 09:30 Diazepam (Valium) 5 mg PO BID [facility]; Protocol Stop: 02/23/18 21:59 Last Admin: 12/25/17 21:55 Dose: 5 mg Dicyclomine HCl (Bentyl) 10 mg PO QID [facility] Stop: 02/22/18 12:59 Last Admin: 12/25/17 20:40 Dose: 10 mg Divalproex Sodium (Depakote Dr) 250 mg PO HS [facility]; Protocol Stop: 02/22/18 20:59 Last Admin: 12/25/17 20:40 Dose: 250 mg Docusate Sodium (Colace) 100 mg PO DAILY [facility] Stop: 02/23/18 08:59 Last Admin: 12/25/17 09:04 Dose: 100 mg Duloxetine HCl (Cymbalta) 60 mg PO DAILY [facility] Stop: 02/23/18 08:59 Last Admin: 12/25/17 09:04 Dose: 60 mg Fluticasone Propionate (Flonase) 2 spr NS BID [facility] Stop: 02/22/18 16:59 Last Admin: 12/25/17 17:21 Dose: 2 spr Gabapentin (Neurontin) 300 mg PO Q6HR [facility] Stop: 02/22/18 11:59 Last Admin: 12/25/17 17:21 Dose: 300 mg Hydromorphone HCl (Dilaudid) 2 mg IVP Q3H PRN PRN Reason: Severe Pain Stop: 02/22/18 19:29 Last Admin: 12/25/17 21:55 Dose: 2 mg Dextrose/Sodium Chloride (D5-0.9%Ns) 1,000 mls @ 90 mls/hr IV .Q11H7M [facility] Stop: 02/22/18 09:59 Last Infusion: 12/25/17 16:23 Dose: 0 mls/hr Lactobacillus Rhamnosus (Culturelle 15b) 1 each PO DAILY [facility] Stop: 02/23/18 08:59 Last Admin: 12/25/17 09:03 Dose: 1 each Magnesium Hydroxide (Milk Of Magnesia) 30 ml PO DAILY PRN PRN Reason: Constipation Stop: 02/22/18 09:33 Metoclopramide HCl (Reglan) 10 mg PO DAILY PRN PRN Reason: Nausea / Vomiting Stop: 02/22/18 09:33 Miscellaneous (Buprenorphine [Butrans]) 5 mcg TD QSAT [facility] Stop: 02/22/18 09:44 Miscellaneous (Dronabinol [Marinol]) 2.5 mg PO BID [facility] Stop: 02/22/18 16:59 Miscellaneous (Lidocaine [Anecream]) 1 dose TP BID PRN PRN Reason: Rectal Pain Miscellaneous (Mesalamine [Mesalamine]) 800 mg PO TID [facility] Stop: 02/22/18 13:59 Miscellaneous (Naloxegol Oxalate [Movantik]) 25 mg PO DAILY [facility] Stop: 02/23/18 08:59 Multivitamins/Vitamin C (Theragran) 1 tab PO DAILY [facility] Stop: 02/23/18 08:59 Last Admin: 12/25/17 09:03 Dose: 1 tab Oxycodone HCl (Oxycodone Ir) 20 mg PO Q3H PRN PRN Reason: Pain (Moderate) Stop: 02/22/18 10:14 Trazodone HCl (Desyrel) 150 mg PO HS [facility]; Protocol Stop: 02/22/18 20:59 Last Admin: 12/25/17 20:39 Dose: 150 mg General: weak, congested HEENT: NC/AT, PERRLA, EOMI, anicteric sclerae, throat clear Neck: Supple, No JVD, No thyromegaly, No LAD Lungs: wheezing, ronchi Cardiovascular: RRR Abdomen: soft, non-tender, non-distended, positive bowel sound Extremities: clear Internal Medicine Assmt/Plan - Assessment Assessment: Abd pain: on and off; but improving. Enteritis: IVPB Flagyl. COPD: RT protocol. S/P CVA: difficult walking. s/p multiple abd surgery Chronic pain syndrome: multifactorial and is understandable.
[2017-12-26] MEDS: HYDROmorphone 2 mg/mL 1mL Vial IVP PRN ×8 (01:21→23:45)
[2017-12-26] MEDS ORDERED: metroNIDAZOLE 500mg/NS 100mL 500 MG/100 ML BAG IV ONE (04:11)
[2017-12-26] MEDS: metroNIDAZOLE 500mg/NS 100mL 500 MG/100 ML BAG IV SCH ×3 (04:23→20:56)
[2017-12-26] MEDS: Fluticasone Propionate Nasal 1 SPR SPR NS SCH ×2 (08:05→17:44)
[2017-12-26] MEDS: Lactobacillus Rhamnosus GG 15 Billion CFU CAP.SPRINK PO SCH (08:08)
[2017-12-26] MEDS: Multivitamin Tab PO SCH (08:09)
[2017-12-26] MEDS: Dicyclomine 10 mg Cap PO SCH ×4 (08:09→20:53)
[2017-12-26] MEDS: D5-0.9%NS 1,000 ML IV SCH (09:51)
--- NOTE | 2017-12-26 20:14 | Internal Medicine Prog Note ---
Internal Medicine Subjective - Subjective Service Date: 12/26/17 Patient seen and examined:: without staff Patient is:: awake, interactive, in bed Patient Complaints of:: congestion Per staff patient has:: no adverse event Internal Medicine Objective - Results Result Diagrams: 12/24/17 01:15 12/24/17 01:15 Recent Labs: Laboratory Last Values WBC 9.4 Th/cmm (4.8-10.8) 12/24/17 01:15 RBC 5.34 Mil/cmm (4.30-5.70) 12/24/17 01:15 Hgb 14.7 gm/dL (12-16) 12/24/17 01:15 Hct 45.5 % (41.0-60) 12/24/17 01:15 MCV 85.4 fl (80-99) 12/24/17 01:15 MCH 27.6 pg (26.0-30.0) 12/24/17 01:15 MCHC Differential 32.3 pg (28.0-36.0) 12/24/17 01:15 RDW 16.0 % (11.5-20.0) 12/24/17 01:15 Plt Count 333 Th/cmm (150-400) 12/24/17 01:15 MPV 8.8 fl 12/24/17 01:15 Add Manual Diff YES 12/24/17 01:15 Band Neutrophils % 0 % (0-10) 12/24/17 01:15 Neutrophils (Manual) 79 % (40-80) 12/24/17 01:15 Lymphocytes 11 % (20-50) L 12/24/17 01:15 Monocytes 9 % (2-10) 12/24/17 01:15 Eosinophils 1 % (0-5) 12/24/17 01:15 Basophils 0 % (0-3) 12/24/17 01:15 Platelet Estimate ADEQUATE (NORMAL) 12/24/17 01:15 PT 10.9 SECONDS (9.5-11.5) 12/24/17 01:15 INR 1.07 (0.5-1.4) 12/24/17 01:15 PTT (Actin FS) 31.0 SECONDS (26.0-38.0) 12/24/17 01:15 Sodium 135 mEq/L (136-145) L 12/24/17 01:15 Potassium 3.7 mEq/L (3.5-5.1) 12/24/17 01:15 Chloride 101 mEq/L (98-107) 12/24/17 01:15 Carbon Dioxide 19.0 mEq/L (21.0-31.0) L 12/24/17 01:15 Anion Gap 18.7 (7.0-16.0) H 12/24/17 01:15 BUN 21 mg/dL (7-25) 12/24/17 01:15 Creatinine 1.1 mg/dL (0.7-1.3) 12/24/17 01:15 Est GFR ( Amer) > 60.0 ml/min (>90) 12/24/17 01:15 Est GFR (Non-Af Amer) > 60.0 ml/min 12/24/17 01:15 BUN/Creatinine Ratio 19.1 12/24/17 01:15 Glucose 108 mg/dL (70-105) H 12/24/17 01:15 Calcium 8.7 mg/dL (8.6-10.3) 12/24/17 01:15 Total Bilirubin 0.2 mg/dL (0.3-1.0) L 12/24/17 01:15 AST 17 U/L (13-39) 12/24/17 01:15 ALT 14 U/L (7-52) 12/24/17 01:15 Alkaline Phosphatase 121 U/L (34-104) H 12/24/17 01:15 Troponin I < 0.01 ng/mL (0.01-0.05) L 12/24/17 01:15 Total Protein 8.5 gm/dL (6.0-8.3) H 12/24/17 01:15 Albumin 3.4 gm/dL (4.2-5.5) L 12/24/17 01:15 Globulin 5.1 gm/dL 12/24/17 01:15 Albumin/Globulin Ratio 0.7 (1.0-1.8) L 12/24/17 01:15 Amylase 49 U/L (29-103) 12/24/17 01:15 Lipase 81 U/L (11-82) 12/24/17 01:15 TSH 0.51 uIU/ml (0.34-5.60) 12/24/17 01:15 Urine Source MIDSTREAM 12/25/17 12:00 Urine Color YELLOW 12/25/17 12:00 Urine Clarity CLEAR (CLEAR) 12/25/17 12:00 Urine pH 6.0 (4.6 - 8.0) 12/25/17 12:00 Ur Specific [place] 1.020 (1.005-1.030) 12/25/17 12:00 Urine Protein NEGATIVE mg/dL (NEGATIVE) 12/25/17 12:00 Urine Glucose (UA) NEGATIVE mg/dL (NEGATIVE) 12/25/17 12:00 Urine Ketones NEGATIVE mg/dL (NEGATIVE) 12/25/17 12:00 Urine Blood NEGATIVE (NEGATIVE) 12/25/17 12:00 Urine Nitrate NEGATIVE (NEGATIVE) 12/25/17 12:00 Urine Bilirubin NEGATIVE (NEGATIVE) 12/25/17 12:00 Urine Urobilinogen 0.2 E.U./dL (0.2 - 1.0) 12/25/17 12:00 Ur Leukocyte Esterase NEGATIVE (NEGATIVE) 12/25/17 12:00 - Physical Exam Vitals and I&O: Vital Signs Temp 97.8 F 12/26/17 20:00 Pulse 87 12/26/17 20:00 Resp 17 12/26/17 20:00 BP 138/86 12/26/17 20:00 Pulse Ox 99 12/26/17 20:00 Intake & Output 12/26/17 12/26/17 12/27/17 06:59 18:59 06:59 Intake Total 250 100 Balance 250 100 Weight (lbs) 63.049 kg Intake: Intake, IV Amount 100 100 D5-0.9%Ns 1,000 ml @ 90 0 mls/hr IV .Q11H7M [facility] Rx# :[id number] metroNIDAZOLE 500mg/NS 100 100 100mL 500 mg In 100 ml @ 100 mls/hr IV Q8HR [facility] Rx #:[id number] Oral 150 Other: # Voids 3 # Bowel Movements 3 Stool Characteristics Liquid Brown Weight Source Bedscale Active Medications: Current Medications Acetaminophen (Tylenol) 650 mg PO Q6HR PRN PRN Reason: PAIN OR TEMP >101 Stop: 02/22/18 09:30 Last Admin: 12/26/17 09:49 Dose: 650 mg Amitriptyline HCl (Elavil) 100 mg PO [facility]; Protocol Stop: 02/22/18 20:59 Last Admin: 12/25/17 20:39 Dose: 100 mg Amlodipine Besylate (Norvasc) 5 mg PO DAILY [facility] Stop: 02/23/18 08:59 Last Admin: 12/26/17 08:09 Dose: 5 mg Ascorbic Acid (Vitamin C) 500 mg PO DAILY [facility] Stop: 02/23/18 08:59 Last Admin: 12/26/17 08:08 Dose: 500 mg Baclofen (Lioresal) 5 mg PO DAILY [facility] Stop: 02/23/18 08:59 Last Admin: 12/26/17 08:08 Dose: 5 mg Benazepril HCl (Lotensin) 10 mg PO DAILY [facility] Stop: 02/23/18 08:59 Last Admin: 12/26/17 08:07 Dose: 10 mg Bisacodyl (Dulcolax 10 Mg Supp) 10 mg RC DAILY PRN PRN Reason: IF MOM INEFFECTIVE Stop: 02/22/18 09:30 Diazepam (Valium) 5 mg PO BID [facility]; Protocol Stop: 02/23/18 21:59 Last Admin: 12/26/17 17:42 Dose: 5 mg Dicyclomine HCl (Bentyl) 10 mg PO QID [facility] Stop: 02/22/18 12:59 Last Admin: 12/26/17 17:39 Dose: 10 mg Divalproex Sodium (Depakote Dr) 250 mg PO [facility]; Protocol Stop: 02/22/18 20:59 Last Admin: 12/25/17 20:40 Dose: 250 mg Docusate Sodium (Colace) 100 mg PO DAILY [facility] Stop: 02/23/18 08:59 Last Admin: 12/26/17 08:10 Dose: Not Given Duloxetine HCl (Cymbalta) 60 mg PO DAILY [facility] Stop: 02/23/18 08:59 Last Admin: 12/26/17 08:09 Dose: 60 mg Fluticasone Propionate (Flonase) 2 spr NS BID [facility] Stop: 02/22/18 16:59 Last Admin: 12/26/17 17:44 Dose: 2 spr Gabapentin (Neurontin) 300 mg PO Q6HR [facility] Stop: 02/22/18 11:59 Last Admin: 12/26/17 17:39 Dose: 300 mg Hydromorphone HCl (Dilaudid) 2 mg IVP Q3H PRN PRN Reason: Severe Pain Stop: 02/22/18 19:29 Last Admin: 12/26/17 17:39 Dose: 2 mg Metronidazole (Flagyl) 500 mg in 100 mls @ 100 mls/hr IV Q8HR [facility] Stop: 02/24/18 04:59 Last Infusion: 12/26/17 14:10 Dose: Infused Lactobacillus Rhamnosus (Culturelle 15b) 1 each PO DAILY [facility] Stop: 02/23/18 08:59 Last Admin: 12/26/17 08:08 Dose: 1 each Magnesium Hydroxide (Milk Of Magnesia) 30 ml PO DAILY PRN PRN Reason: Constipation Stop: 02/22/18 09:33 Metoclopramide HCl (Reglan) 10 mg PO DAILY PRN PRN Reason: Nausea / Vomiting Stop: 02/22/18 09:33 Miscellaneous (Buprenorphine [Butrans]) 5 mcg TD QSAT [facility] Stop: 02/22/18 09:44 Miscellaneous (Dronabinol [Marinol]) 2.5 mg PO BID [facility] Stop: 02/22/18 16:59 Miscellaneous (Lidocaine [Anecream]) 1 dose TP BID PRN PRN Reason: Rectal Pain Miscellaneous (Mesalamine [Mesalamine]) 800 mg PO TID [facility] Stop: 02/22/18 13:59 Miscellaneous (Naloxegol Oxalate [Movantik]) 25 mg PO DAILY [facility] Stop: 02/23/18 08:59 Multivitamins/Vitamin C (Theragran) 1 tab PO DAILY [facility] Stop: 02/23/18 08:59 Last Admin: 12/26/17 08:09 Dose: 1 tab Oxycodone HCl (Oxycodone Ir) 20 mg PO Q3H PRN PRN Reason: Pain (Moderate) Stop: 02/22/18 10:14 Trazodone HCl (Desyrel) 150 mg PO HS [facility]; Protocol Stop: 02/22/18 20:59 Last Admin: 12/25/17 20:39 Dose: 150 mg General: weak, congested HEENT: NC/AT, PERRLA, EOMI, anicteric sclerae, throat clear Neck: Supple, No JVD, No thyromegaly, No LAD Lungs: wheezing, ronchi Cardiovascular: RRR Abdomen: soft, non-tender, non-distended, positive bowel sound Extremities: clear Internal Medicine Assmt/Plan - Assessment Assessment: Enteritis: IVPB Flagyl. Abd pain: on and off; but improving. COPD: RT protocol. S/P CVA: difficult walking. s/p multiple abd surgery Chronic pain syndrome: multifactorial and is understandable.
[2017-12-27] MEDS: HYDROmorphone 2 mg/mL 1mL Vial IVP PRN ×7 (02:49→20:18)
[2017-12-27] MEDS: metroNIDAZOLE 500mg/NS 100mL 500 MG/100 ML BAG IV SCH ×2 (05:24→12:03)
[2017-12-27] MEDS: Lactobacillus Rhamnosus GG 15 Billion CFU CAP.SPRINK PO SCH (09:05)
[2017-12-27] MEDS: Multivitamin Tab PO SCH (09:06)
[2017-12-27] MEDS: Dicyclomine 10 mg Cap PO SCH ×4 (09:07→20:05)
[2017-12-27] MEDS: Fluticasone Propionate Nasal 1 SPR SPR NS SCH ×2 (09:14→17:08)
--- NOTE | 2017-12-27 09:25 | Internal Medicine Prog Note ---
Internal Medicine Subjective - Subjective Service Date: 12/27/17 Patient seen and examined:: without staff Patient is:: awake, interactive, in bed Patient Complaints of:: congestion Per staff patient has:: no adverse event Internal Medicine Objective - Results Result Diagrams: 12/24/17 01:15 12/24/17 01:15 Recent Labs: Laboratory Last Values WBC 9.4 Th/cmm (4.8-10.8) 12/24/17 01:15 RBC 5.34 Mil/cmm (4.30-5.70) 12/24/17 01:15 Hgb 14.7 gm/dL (12-16) 12/24/17 01:15 Hct 45.5 % (41.0-60) 12/24/17 01:15 MCV 85.4 fl (80-99) 12/24/17 01:15 MCH 27.6 pg (26.0-30.0) 12/24/17 01:15 MCHC Differential 32.3 pg (28.0-36.0) 12/24/17 01:15 RDW 16.0 % (11.5-20.0) 12/24/17 01:15 Plt Count 333 Th/cmm (150-400) 12/24/17 01:15 MPV 8.8 fl 12/24/17 01:15 Add Manual Diff YES 12/24/17 01:15 Band Neutrophils % 0 % (0-10) 12/24/17 01:15 Neutrophils (Manual) 79 % (40-80) 12/24/17 01:15 Lymphocytes 11 % (20-50) L 12/24/17 01:15 Monocytes 9 % (2-10) 12/24/17 01:15 Eosinophils 1 % (0-5) 12/24/17 01:15 Basophils 0 % (0-3) 12/24/17 01:15 Platelet Estimate ADEQUATE (NORMAL) 12/24/17 01:15 PT 10.9 SECONDS (9.5-11.5) 12/24/17 01:15 INR 1.07 (0.5-1.4) 12/24/17 01:15 PTT (Actin FS) 31.0 SECONDS (26.0-38.0) 12/24/17 01:15 Sodium 135 mEq/L (136-145) L 12/24/17 01:15 Potassium 3.7 mEq/L (3.5-5.1) 12/24/17 01:15 Chloride 101 mEq/L (98-107) 12/24/17 01:15 Carbon Dioxide 19.0 mEq/L (21.0-31.0) L 12/24/17 01:15 Anion Gap 18.7 (7.0-16.0) H 12/24/17 01:15 BUN 21 mg/dL (7-25) 12/24/17 01:15 Creatinine 1.1 mg/dL (0.7-1.3) 12/24/17 01:15 Est GFR ( Amer) > 60.0 ml/min (>90) 12/24/17 01:15 Est GFR (Non-Af Amer) > 60.0 ml/min 12/24/17 01:15 BUN/Creatinine Ratio 19.1 12/24/17 01:15 Glucose 108 mg/dL (70-105) H 12/24/17 01:15 Calcium 8.7 mg/dL (8.6-10.3) 12/24/17 01:15 Total Bilirubin 0.2 mg/dL (0.3-1.0) L 12/24/17 01:15 AST 17 U/L (13-39) 12/24/17 01:15 ALT 14 U/L (7-52) 12/24/17 01:15 Alkaline Phosphatase 121 U/L (34-104) H 12/24/17 01:15 Troponin I < 0.01 ng/mL (0.01-0.05) L 12/24/17 01:15 Total Protein 8.5 gm/dL (6.0-8.3) H 12/24/17 01:15 Albumin 3.4 gm/dL (4.2-5.5) L 12/24/17 01:15 Globulin 5.1 gm/dL 12/24/17 01:15 Albumin/Globulin Ratio 0.7 (1.0-1.8) L 12/24/17 01:15 Amylase 49 U/L (29-103) 12/24/17 01:15 Lipase 81 U/L (11-82) 12/24/17 01:15 TSH 0.51 uIU/ml (0.34-5.60) 12/24/17 01:15 Urine Source MIDSTREAM 12/25/17 12:00 Urine Color YELLOW 12/25/17 12:00 Urine Clarity CLEAR (CLEAR) 12/25/17 12:00 Urine pH 6.0 (4.6 - 8.0) 12/25/17 12:00 Ur Specific [place] 1.020 (1.005-1.030) 12/25/17 12:00 Urine Protein NEGATIVE mg/dL (NEGATIVE) 12/25/17 12:00 Urine Glucose (UA) NEGATIVE mg/dL (NEGATIVE) 12/25/17 12:00 Urine Ketones NEGATIVE mg/dL (NEGATIVE) 12/25/17 12:00 Urine Blood NEGATIVE (NEGATIVE) 12/25/17 12:00 Urine Nitrate NEGATIVE (NEGATIVE) 12/25/17 12:00 Urine Bilirubin NEGATIVE (NEGATIVE) 12/25/17 12:00 Urine Urobilinogen 0.2 E.U./dL (0.2 - 1.0) 12/25/17 12:00 Ur Leukocyte Esterase NEGATIVE (NEGATIVE) 12/25/17 12:00 - Physical Exam Vitals and I&O: Vital Signs Temp 98.1 F 12/27/17 08:00 Pulse 86 12/27/17 09:07 Resp 18 12/27/17 08:00 BP 133/81 12/27/17 09:07 Pulse Ox 93 12/27/17 08:00 Intake & Output 12/26/17 12/27/17 12/27/17 18:59 06:59 18:59 Intake Total 100 100 Balance 100 100 Intake: Intake, IV Amount 100 100 D5-0.9%Ns 1,000 ml @ 90 0 mls/hr IV .Q11H7M [facility] Rx# :[id number] metroNIDAZOLE 500mg/NS 100 100 100mL 500 mg In 100 ml @ 100 mls/hr IV Q8HR [facility] Rx #:[id number] Active Medications: Current Medications Acetaminophen (Tylenol) 650 mg PO Q6HR PRN PRN Reason: PAIN OR TEMP >101 Stop: 02/22/18 09:30 Last Admin: 12/27/17 09:05 Dose: 650 mg Amitriptyline HCl (Elavil) [address] [facility]; Protocol Stop: 02/22/18 20:59 Last Admin: 12/26/17 20:52 Dose: 100 mg Amlodipine Besylate (Norvasc) 5 mg PO DAILY [facility] Stop: 02/23/18 08:59 Last Admin: 12/27/17 09:06 Dose: 5 mg Ascorbic Acid (Vitamin C) 500 mg PO DAILY [facility] Stop: 02/23/18 08:59 Last Admin: 12/27/17 09:06 Dose: 500 mg Baclofen (Lioresal) 5 mg PO DAILY [facility] Stop: 02/23/18 08:59 Last Admin: 12/27/17 09:06 Dose: 5 mg Benazepril HCl (Lotensin) 10 mg PO DAILY [facility] Stop: 02/23/18 08:59 Last Admin: 12/27/17 09:07 Dose: 10 mg Bisacodyl (Dulcolax 10 Mg Supp) 10 mg RC DAILY PRN PRN Reason: IF MOM INEFFECTIVE Stop: 02/22/18 09:30 Diazepam (Valium) 5 mg PO BID [facility]; Protocol Stop: 02/23/18 21:59 Last Admin: 12/27/17 09:06 Dose: 5 mg Dicyclomine HCl (Bentyl) 10 mg PO QID [facility] Stop: 02/22/18 12:59 Last Admin: 12/27/17 09:07 Dose: 10 mg Divalproex Sodium (Depakote Dr) 250 mg PO HS [facility]; Protocol Stop: 02/22/18 20:59 Last Admin: 12/26/17 20:55 Dose: 250 mg Docusate Sodium (Colace) 100 mg PO DAILY [facility] Stop: 02/23/18 08:59 Last Admin: 12/27/17 09:09 Dose: Not Given Duloxetine HCl (Cymbalta) 60 mg PO DAILY [facility] Stop: 02/23/18 08:59 Last Admin: 12/27/17 09:06 Dose: 60 mg Fluticasone Propionate (Flonase) 2 spr NS BID [facility] Stop: 02/22/18 16:59 Last Admin: 12/27/17 09:14 Dose: 2 spr Gabapentin (Neurontin) 300 mg PO Q6HR [facility] Stop: 02/22/18 11:59 Last Admin: 12/27/17 06:00 Dose: 300 mg Hydromorphone HCl (Dilaudid) 2 mg IVP Q3H PRN PRN Reason: Severe Pain Stop: 02/22/18 19:29 Last Admin: 12/27/17 08:56 Dose: 2 mg Metronidazole (Flagyl) 500 mg in 100 mls @ 100 mls/hr IV Q8HR [facility] Stop: 02/24/18 04:59 Last Admin: 12/27/17 05:24 Dose: 100 mls/hr Lactobacillus Rhamnosus (Culturelle 15b) 1 each PO DAILY [facility] Stop: 02/23/18 08:59 Last Admin: 12/27/17 09:05 Dose: 1 each Magnesium Hydroxide (Milk Of Magnesia) 30 ml PO DAILY PRN PRN Reason: Constipation Stop: 02/22/18 09:33 Metoclopramide HCl (Reglan) 10 mg PO DAILY PRN PRN Reason: Nausea / Vomiting Stop: 02/22/18 09:33 Miscellaneous (Buprenorphine [Butrans]) 5 mcg TD QSAT [facility] Stop: 02/22/18 09:44 Miscellaneous (Dronabinol [Marinol]) 2.5 mg PO BID [facility] Stop: 02/22/18 16:59 Miscellaneous (Lidocaine [Anecream]) 1 dose TP BID PRN PRN Reason: Rectal Pain Miscellaneous (Mesalamine [Mesalamine]) 800 mg PO TID [facility] Stop: 02/22/18 13:59 Miscellaneous (Naloxegol Oxalate [Movantik]) 25 mg PO DAILY [facility] Stop: 02/23/18 08:59 Multivitamins/Vitamin C (Theragran) 1 tab PO DAILY [facility] Stop: 02/23/18 08:59 Last Admin: 12/27/17 09:06 Dose: 1 tab Oxycodone HCl (Oxycodone Ir) 20 mg PO Q3H PRN PRN Reason: Pain (Moderate) Stop: 02/22/18 10:14 Trazodone HCl (Desyrel) 150 mg PO HS [facility]; Protocol Stop: 02/22/18 20:59 Last Admin: 12/26/17 20:53 Dose: 150 mg General: weak, congested HEENT: NC/AT, PERRLA, EOMI, anicteric sclerae, throat clear Neck: Supple, No JVD, No thyromegaly, No LAD Lungs: wheezing, ronchi Cardiovascular: RRR Abdomen: soft, non-tender, non-distended, positive bowel sound Extremities: clear Internal Medicine Assmt/Plan - Assessment Assessment: COPD: RT protocol. Enteritis: IVPB Flagyl. Abd pain: on and off; but improving. S/P CVA: difficult walking. s/p multiple abd surgery Chronic pain syndrome: multifactorial and is understandable.
--- NOTE | 2017-12-28 08:38 | Diagnostic Imaging Report ---
Portable chest x-ray HISTORY: Shortness of breath, vascular catheter placement The heart size is normal. No acute focal pulmonary processes. The right-sided vascular catheter tip is seen in the region of the superior vena cava. Incidentally noted are dilated loops of bowel in the upper abdomen. This is unchanged from September 13, 2017 consistent with a chronic etiology. IMPRESSION: 1. Vascular catheter placement as noted above 2. No acute focal pulmonary processes
--- NOTE | 2017-12-29 00:53 | Discharge Summary ---
DATE OF DISCHARGE: 12/27/2017 FINAL DIAGNOSES: 1. Abdominal pain, improved. 2. Enteritis: On IV Flagyl. 3. Chronic obstructive pulmonary disease exacerbation on RT protocol. 4. Chronic pain/intractable pain syndrome, multifactorial. 5. History of Crohn's disease and ulcerative colitis, status post multiple abdominal surgeries with complications of adhesions and resultant of chronic pain syndrome. 6. Status post cerebrovascular accident with difficulty walking. HOSPITAL COURSE: The patient is a 57-year-old male admitted due to abdominal pain from enteritis and possible ileus. The patient was kept n.p.o. initially and the next day as his symptoms improved, he was started on clear liquid diet and the patient tolerated it well and advanced as needed. His pain improved after adjusting his pain medications. He also has COPD, received RT protocol. Per the patient request, he will be discharged to [facility]. DISCHARGE CONDITION: Stable. DISPOSITION: To [facility]. DISCHARGE MEDICATIONS: Continue her medication from here. DIET: Cardiac, soft diet. ACTIVITY: Bed rest with physical therapy. FOLLOWUP: Same day in [place]. JOB# [id number]
== END 2017-12-27 20:35 | DRG 372 ==
LOC: ER 23:43 → MSI 12-24 08:22 → TELE 12-24 18:55 → MSI 12-27 12:34
PROVIDERS: ADMIT Internal Medicine; ATTEND Internal Medicine
PROC: 02HV33Z Insertion of Infusion Device into Superior Vena Cava, Percutaneous Approach (ICD-10-PCS; principal; 2017-12-27)
DX: A04.9 Bacterial intestinal infection, unspecified (principal); K51.90 Ulcerative colitis, unspecified, without complications; K56.7 Ileus, unspecified; J44.1 Chronic obstructive pulmonary disease with (acute) exacerbation; W18.30XA Fall on same level, unspecified, initial encounter; I11.0 Hypertensive heart disease with heart failure; I50.9 Heart failure, unspecified; I25.10 Atherosclerotic heart disease of native coronary artery without angina pectoris; K21.9 Gastro-esophageal reflux disease without esophagitis; F03.90 Unspecified dementia, unspecified severity, without behavioral disturbance, psychotic disturbance, mood disturbance, and anxiety; F17.210 Nicotine dependence, cigarettes, uncomplicated; G89.4 Chronic pain syndrome; F29 Unspecified psychosis not due to a substance or known physiological condition; F31.9 Bipolar disorder, unspecified; R56.9 Unspecified convulsions; Y93.89 Activity, other specified; Y92.89 Other specified places as the place of occurrence of the external cause; Y99.8 Other external cause status; Z88.5 Allergy status to narcotic agent; Z88.0 Allergy status to penicillin; Z88.8 Allergy status to other drugs, medicaments and biological substances
CPT/HCPCS: 36415-UA; 71045-TC; 73620-TC-RT; 80053-TC; 81003-TC; 82150-TC; 83690-TC; 84443-TC; 84484-TC; 85007-TC; 85025-TC; 85610-TC; 85730-TC; 90799; 93005; 96375; 96376; J1170; J1630; J1885; J7030; J7042; Z7610